=== PATIENT | male | born 1975 | race Native Hawaiian/Other Pacific Islander ===

== ENCOUNTER 2019-05-07 07:00 | Emergency (ER) | payer OTHER ==
[2019-05-07 07:15] VITALS: BP 129/88
[2019-05-07] MEDS ORDERED: IBUPROFEN PO ONE (08:27)
--- NOTE | 2019-05-07 08:28 | Emergency Department Report ---
ED Lower Extremity HPI - General Chief Complaint: Extremity Injury, Lower Stated Complaint: KNEE INJURY Time Seen by Provider: 05/07/19 08:13 Source: patient Mode of arrival: Ambulatory Limitations: No Limitations - History of Present Illness Initial Comments: 43-year-old male presents to the emergency room for twisting his right knee yesterday. Patient has taken nothing for pain. He reports that the pain is mostly on the medial aspect of the knee with some mild swelling patient reports. Patient states that his pain is a 10 out of 10. Patient has no past medical history currently takes no medications on a daily basis and has no known drug allergies. MD Complaint: knee injury Onset/Timin -: days(s) Injury: Knee: Right Type of Injury: other (twisted) Place: work Severity scale (0 -10): 10 Other Symptoms: loss of consciousness Associated Symptoms: snap/pop sensation, swelling, able to partially bear weight. denies: numbness, tingling Treatments Prior to Arrival: other (none) - Related Data Previous Rx's Medication Instructions Recorded Last Taken Type Ibuprofen [Motrin 600 MG tab] 600 mg PO Q8H PRN #30 tablet 05/07/19 Unknown Rx Allergies Allergy/AdvReac Type Severity Reaction Status Date / Time No Known Allergies Allergy Unverified 08/21/15 23:34 ED Review of Systems ROS: Stated complaint: KNEE INJURY Other details as noted in HPI Comment: All other systems reviewed and negative ED Past Medical Hx - Past Medical History Previous Medical History?: No - Surgical History Past Surgical History?: No - Social History Smoking Status: Current Every Day Smoker - Medications Home Medications: Home Medications Medication Instructions Recorded Confirmed Last Taken Type Ibuprofen [Motrin 600 MG tab] 600 mg PO Q8H PRN #30 tablet 05/07/19 Unknown Rx ED Physical Exam - General Limitations: No Limitations General appearance: alert, in no apparent distress - Head Head exam: Present: atraumatic, normocephalic - Eye Eye exam: Present: normal appearance - ENT ENT exam: Present: mucous membranes moist - Expanded Lower Extremity Exam Right Hip exam: Present: normal inspection Upper Leg exam: Present: normal inspection Knee exam: Present: tenderness (medial aspect), swelling (medial aspect). Absent: abrasion, laceration, deformity, crepidus, dislocation, erythema, effusion Lower Leg exam: Present: normal inspection, full ROM Ankle exam: Present: normal inspection, full ROM Foot/Toe exam: Present: normal inspection, full ROM - Back Exam Back exam: Present: normal inspection - Neurological Exam Neurological exam: Present: alert, oriented X3 - Psychiatric Psychiatric exam: Present: normal affect, normal mood - Skin Skin exam: Present: warm, dry, intact, normal color. Absent: rash ED Course Vital Signs 05/07/19 07:12 Temperature 98.2 F Pulse Rate 77 Respiratory 16 Rate Blood Pressure 129/88 O2 Sat by Pulse 99 Oximetry ED Lower Extremity MDM - Radiology Data Radiology results: report reviewed Patient: DAMON MAHONEY JR MR#: [id number] : 1975 Acct:[id number] Age/Sex: 43 / M ADM Date: 05/07/19 Loc: ED Attending Dr: Ordering Physician: TRAVIS BANEGAS Date of Service: 05/07/19 Procedure(s): XR knee 1-2V RT Accession Number(s): [id number] cc: TRAVIS BANEGAS Fluoro Time In Minutes: RIGHT KNEE 2 VIEWS INDICATION / CLINICAL INFORMATION: right knee pain with mild swelling COMPARISON: None available. FINDINGS: BONES and JOINT(S): No acute fracture or subluxation. No significant arthritis. SOFT TISSUES: No significant abnormality. ADDITIONAL FINDINGS: None. Signer Name: Manuel Herzog MD Signed: 05/07/2019 10:16 AM Workstation Name: [id number] Transcribed By: MN Dictated By: Manuel Herzog MD Electronically Authenticated By: Manuel Herzog MD Signed Date/Time: 05/07/19 1016 DD/ 1015 TD/TT: - Medical Decision Making 43-year-old male comes in for twisted his right knee yesterday. Patient has had x-rays pending results. Ibuprofen 800 mg given for pain management. X-ray of knee shows no acute abnormalities. Discussed the patient is to follow- up with the orthopedic provider as he may need an MRI to his knee. Critical care attestation.: If time is entered above; I have spent that time in minutes in the direct care of this critically ill patient, excluding procedure time. ED Disposition Clinical Impression: Knee LCL sprain Disposition: - TO HOME OR SELFCARE Is pt being admited?: No Does the pt Need Aspirin: No Condition: Stable Instructions: Knee Sprain (ED) Additional Instructions: Please take ibuprofen as needed for pain management. Follow-up with orthopedic provider I have listed to below for your convenience. Also wearing the brace as needed for comfort. Prescriptions: Ibuprofen [Motrin 600 MG tab] 600 mg PO Q8H PRN #30 tablet PRN Reason: Pain , Severe (7-10) Referrals: TONIA HUERTA MD [Primary Care Provider] - 3-5 Days MORGAN JOHNSTON MD [Staff Physician] - 3-5 Days CARLOZ TREVIZO MD [Staff Physician] - 3-5 Days Forms: Work/School Release Form(ED)
--- NOTE | 2019-05-07 10:20 | XRay Report ---
RIGHT KNEE 2 VIEWS INDICATION / CLINICAL INFORMATION: right knee pain with mild swelling COMPARISON: None available. FINDINGS: BONES and JOINT(S): No acute fracture or subluxation. No significant arthritis. SOFT TISSUES: No significant abnormality. ADDITIONAL FINDINGS: None. Signer Name: Manuel Herzog MD Signed: 05/07/2019 10:16 AM Workstation Name: [id number]
== END 2019-05-07 11:34 | disposition home or self-care (01) ==
LOC: ED 07:00
DX: S83.92XA Sprain of unspecified site of left knee, initial encounter (principal); X50.9XXA Other and unspecified overexertion or strenuous movements or postures, initial encounter; Y93.89 Activity, other specified; Y92.89 Other specified places as the place of occurrence of the external cause; Y99.8 Other external cause status

== ENCOUNTER 2021-08-01 11:20 | Emergency (ER) | payer SELFPAY ==
--- NOTE | 2021-08-01 12:03 | Emergency Department Report ---
Chief Complaint: Upper Respiratory Infection Stated Complaint: CHEST AND COUGHING Time Seen by Provider: 08/01/21 12:01 - HPI History of Present Illness: smoker. 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 Due to findings the following was ordered: no life threat mse to pcp smoking cessation discussed ED Disposition for MSE Clinical Impression: Cough, Smoker Disposition: 01 HOME / SELF CARE / HOMELESS Is pt being admited?: No Does the pt Need Aspirin: No Condition: Stable Additional Instructions: stop smoking referral to lung doctor below for lung test we discussed Referrals: XENIA ASHLEY MD [Staff Physician] - 3-5 Days LAURA BASHIR MD [Staff Physician] - 3-5 Days Forms: Work/School Release Form(ED) Time of Disposition: 12:02
[2021-08-01 12:39] VITALS: BP 143/92
== END 2021-08-01 12:35 | disposition home or self-care (01) ==
LOC: ED 11:20
DX: R05.9 Cough, unspecified (principal); F17.200 Nicotine dependence, unspecified, uncomplicated
CPT/HCPCS: 99282